=== PATIENT | male | born 1945 | race Two or more races ===

== ENCOUNTER 2017-08-24 10:19 | Day surgery (SDC) | payer MEDICARE ==
[~2017-08-24] VITALS: Ht 165.1 cm; Wt 75.7 kg
[~2017-08-24 10:19] MED LIST: CHOL10002; FLONASE ALLERG9.9 ML NS; LOSA50; LOSA50 PO; Prozac40 MG; Prozac40 MG PO; Simvastatin20 MG; Simvastatin20 MG PO; TRAM50 PO; VITAMIN D32000 UNI1 PO
== END 2017-08-24 13:13 | disposition home or self-care (01) ==
LOC: ORSCSDS 10:19
PROVIDERS: Ophthalmology
PROC: 08RK3JZ Replacement of Left Lens with Synthetic Substitute, Percutaneous Approach (ICD-10-PCS; principal; 2017-08-24 12:00)
DX: H25.12 Age-related nuclear cataract, left eye (principal); G47.33 Obstructive sleep apnea (adult) (pediatric); M32.9 Systemic lupus erythematosus, unspecified; I10 Essential (primary) hypertension; R73.03 Prediabetes; Z79.899 Other long term (current) drug therapy; Z87.891 Personal history of nicotine dependence
CPT/HCPCS: 82947; J2250; J3010; J7040; V2632

== ENCOUNTER 2017-10-05 11:27 | Day surgery (SDC) | payer MEDICARE ==
[~2017-10-05] VITALS: Ht 165.1 cm; Wt 75.2 kg
== END 2017-10-05 13:26 | disposition home or self-care (01) ==
LOC: ORSCSDS 11:27
PROVIDERS: Ophthalmology
PROC: 08RJ3JZ Replacement of Right Lens with Synthetic Substitute, Percutaneous Approach (ICD-10-PCS; principal; 2017-10-05 13:00)
DX: H25.11 Age-related nuclear cataract, right eye (principal); G47.33 Obstructive sleep apnea (adult) (pediatric); I10 Essential (primary) hypertension; R73.03 Prediabetes; M32.9 Systemic lupus erythematosus, unspecified; Z79.899 Other long term (current) drug therapy; Z87.891 Personal history of nicotine dependence
CPT/HCPCS: 82947; J2250; J3010; J7040; V2632

== ENCOUNTER 2019-02-12 07:57 | Day surgery (SDC) | payer MEDICARE ==
[~2019-02-12] VITALS: Ht 165.1 cm; Wt 74.5 kg
[2019-02-12] MEDS ORDERED: CORTISONE60 GM (08:52)
== END 2019-02-12 10:32 | disposition home or self-care (01) ==
LOC: ORSCSDS 07:57
PROVIDERS: Internal Medicine Gastroenterology
PROC: 0DBH8ZX Excision of Cecum, Via Natural or Artificial Opening Endoscopic, Diagnostic (ICD-10-PCS; principal; 2019-02-12 09:30)
PROC: 0DBM8ZX Excision of Descending Colon, Via Natural or Artificial Opening Endoscopic, Diagnostic (ICD-10-PCS; principal; 2019-02-12 09:30)
PROC: 0DBK8ZX Excision of Ascending Colon, Via Natural or Artificial Opening Endoscopic, Diagnostic (ICD-10-PCS; principal; 2019-02-12 09:30)
DX: K92.1 Melena (principal); D12.0 Benign neoplasm of cecum; D12.2 Benign neoplasm of ascending colon; D12.4 Benign neoplasm of descending colon; D12.8 Benign neoplasm of rectum; K57.30 Diverticulosis of large intestine without perforation or abscess without bleeding; K64.8 Other hemorrhoids; I12.9 Hypertensive chronic kidney disease with stage 1 through stage 4 chronic kidney disease, or unspecified chronic kidney disease; N18.4 Chronic kidney disease, stage 4 (severe); G62.9 Polyneuropathy, unspecified; G47.33 Obstructive sleep apnea (adult) (pediatric); Z79.899 Other long term (current) drug therapy
CPT/HCPCS: 88305; J2250; J2704

== ENCOUNTER → 2019-12-16 | Outpatient (CLI) | payer MEDICARE ==
[~2019-12-16] MED LIST changes: +CORTISONE60 GM
== END | disposition home or self-care (01) ==
LOC: LAB SHORT 10:51 → PLD 10:51
DX: L82.0 Inflamed seborrheic keratosis (principal); L81.4 Other melanin hyperpigmentation; L57.8 Other skin changes due to chronic exposure to nonionizing radiation
CPT/HCPCS: 88305

== ENCOUNTER 2020-01-15 22:58 | Emergency (ER) | payer MEDICARE ==
[~2020-01-15] VITALS: Ht 177.8 cm; Wt 77.1 kg
[2020-01-15] MEDS ORDERED: ATORVASTATIN CA80 MG PO (23:30)
== END 2020-01-15 23:57 | disposition home or self-care (01) ==
LOC: ER 22:58
DX: H10.212 Acute toxic conjunctivitis, left eye (principal); T49.0X5A Adverse effect of local antifungal, anti-infective and anti-inflammatory drugs, initial encounter; Z87.891 Personal history of nicotine dependence; Z91.048 Other nonmedicinal substance allergy status; Z79.899 Other long term (current) drug therapy
CPT/HCPCS: 99282

== ENCOUNTER → 2021-01-07 | Outpatient (CLI) | payer MEDICARE ==
[~2021-01-07] MED LIST changes: +ATORVASTATIN CA80 MG PO; +Norco 5-325 Ta1 EACH PO
[2021-01-07 19:30] LABS: BASOPHILS ABSOLUTE AUTO 0.04 K/mm3 (0.00-0.23); BASOPHILS PERCENT AUTO 1 % (0-2); EOSINOPHILS ABSOLUTE AUTO 0.16 K/mm3 (0.00-0.68); EOSINOPHILS PERCENT AUTO 2 % (0-6); Hematocrit 33.2 % (37.0-53.0); Hemoglobin 11.1 g/dL (13.5-17.5); IMMATURE GRAN ABSOLUTE AUTO 0.03 K/mm3 (0.00-0.10); IMMATURE GRAN PERCENT AUTO 0 % (0-1); LYMPHOCYTES ABSOLUTE AUTO 1.55 K/mm3 (0.84-5.20); LYMPHOCYTES PERCENT AUTO 20 % (21-46); MONOCYTES ABSOLUTE AUTO 0.64 K/mm3 (0.16-1.47); MONOCYTES PERCENT AUTO 8 % (4-13); Mean Corpuscular HGB 30.2 pg (26.0-34.0); Mean Corpuscular HGB Conc 33.4 g/dL (31.5-36.5); Mean Corpuscular Volume 90 fL (80-100); Mean Platelet Volume 11.8 fL (9.1-12.4); NEUTROPHILS ABSOLUTE AUTO 5.23 K/mm3 (1.96-9.15); NEUTROPHILS PERCENT AUTO 68 % (41-73); Platelet Count 164 K/mm3 (150-400); RDW Coefficient Variation 13.5 % (11.7-14.2); RDW Standard Deviation 44.4 fL (35.1-46.3); RETICULOCYTE ABSOLUTE 0.0427 M/mm3 (0.0200-0.1100); RETICULOCYTE COUNT PERCENT 1.16 % (0.50-2.50); Red Blood Cell Count 3.68 M/mm3 (4.30-5.90); White Blood Cell Count 7.65 K/mm3 (4.00-11.30)
[2021-01-07 20:26] LABS: Percent Saturation 17.5 % (20.0-50.0)
== END | disposition home or self-care (01) ==
LOC: LAB 18:22 → LAB SHORT 18:22
PROVIDERS: Physician Assistant
DX: D50.8 Other iron deficiency anemias (principal)
CPT/HCPCS: 82728; 83540; 83550; 85025; 85045

== ENCOUNTER 2021-01-21 12:00 | Emergency (ER) | payer MEDICARE ==
[~2021-01-21] VITALS: Ht 165.1 cm; Wt 73.5 kg
[~2021-01-21 12:00] MED LIST changes: -Norco 5-325 Ta1 EACH PO
[2021-01-21] MEDS ORDERED: Norco 5-325 Ta1 EACH PO (13:44)
== END 2021-01-21 13:50 | disposition home or self-care (01) ==
LOC: ER 12:00
DX: S22.31XA Fracture of one rib, right side, initial encounter for closed fracture (principal); Z91.09 Other allergy status, other than to drugs and biological substances; Z79.899 Other long term (current) drug therapy; Z87.891 Personal history of nicotine dependence; W01.10XA Fall on same level from slipping, tripping and stumbling with subsequent striking against unspecified object, initial encounter
CPT/HCPCS: 71101; 99283-25; A9270

== ENCOUNTER → 2021-06-16 | Outpatient (CLI) | payer MEDICARE ==
[~2021-06-16] MED LIST changes: +Norco 5-325 Ta1 EACH PO
[2021-06-16 15:59] LABS: BASOPHILS ABSOLUTE AUTO 0.03 K/mm3 (0.00-0.23); BASOPHILS PERCENT AUTO 1 % (0-2); EOSINOPHILS ABSOLUTE AUTO 0.22 K/mm3 (0.00-0.68); EOSINOPHILS PERCENT AUTO 4 % (0-6); Hematocrit 32.4 % (37.0-53.0); Hemoglobin 10.5 g/dL (13.5-17.5); IMMATURE GRAN ABSOLUTE AUTO 0.02 K/mm3 (0.00-0.10); IMMATURE GRAN PERCENT AUTO 0 % (0-1); LYMPHOCYTES ABSOLUTE AUTO 1.34 K/mm3 (0.84-5.20); LYMPHOCYTES PERCENT AUTO 22 % (21-46); MONOCYTES ABSOLUTE AUTO 0.47 K/mm3 (0.16-1.47); MONOCYTES PERCENT AUTO 8 % (4-13); Mean Corpuscular HGB 30.8 pg (26.0-34.0); Mean Corpuscular HGB Conc 32.4 g/dL (31.5-36.5); Mean Corpuscular Volume 95 fL (80-100); Mean Platelet Volume 11.8 fL (9.1-12.4); NEUTROPHILS ABSOLUTE AUTO 3.89 K/mm3 (1.96-9.15); NEUTROPHILS PERCENT AUTO 65 % (41-73); Platelet Count 141 K/mm3 (150-400); RDW Coefficient Variation 12.8 % (11.7-14.2); Red Blood Cell Count 3.41 M/mm3 (4.30-5.90); White Blood Cell Count 5.97 K/mm3 (4.00-11.30)
== END | disposition home or self-care (01) ==
LOC: LAB SHORT 14:57 → LAB 14:57
PROVIDERS: Physician Assistant
DX: D50.9 Iron deficiency anemia, unspecified (principal)
CPT/HCPCS: 82728; 83540; 83550; 85025

== ENCOUNTER → 2021-11-18 | Outpatient (CLI) | payer MEDICARE ==
[2021-11-18 11:51] LABS: Body Fluid Crystals NEG (NEGATIVE)
[2021-11-18 12:49] LABS: BODY FLUID RBC 0.009 M/mm3 (0-0); RBC Count, Synovial Fluid 9000 /mm3 (0-0); WBC Count, Synovial Fluid 14440 /mm3 (0-180)
[2021-11-18 12:51] LABS: Appearance, Synovial Fluid Cloudy (Clear); Color, Synovial Fluid Yellow (None-P Yel)
[2021-11-18 12:56] LABS: Eos, Synovial Fluid 1 % (0-2); Lymphs, Synovial Fluid 53 % (0-15); Monocytes/Macrophages, Synovia 17 % (0-65); Neutrophils, Synovial Fluid 29 % (0-24)
== END | disposition home or self-care (01) ==
LOC: LAB SHORT 10:20
PROVIDERS: Internal Medicine Rheumatology
DX: M19.90 Unspecified osteoarthritis, unspecified site (principal)
CPT/HCPCS: 89051; 89060

== ENCOUNTER → 2023-03-20 | Outpatient (CLI) | payer MEDICARE | LOC: LAB 17:20 → LAB SHORT 17:20 | DX: M10.9 Gout, unspecified (principal) | CPT/HCPCS: 84550 ==

== ENCOUNTER 2023-08-09 07:49 | Day surgery (SDC) | payer MEDICARE ==
[2023-08-09] VITALS (22 sets, daily range): BP systolic 106–150; BP diastolic 53–98
[~2023-08-09] VITALS: Ht 165.1 cm; Wt 75.5 kg
[~2023-08-09 07:49] MED LIST changes: +ASPI81CH PO; +ATOR80; +ATOR80 PO; +FEBU40TA PO; +LOSA25 PO; +Prednisone10 MG PO; +Vitamin B Comple1 EA PO
--- NOTE | 2023-08-09 08:35 | NUR ---
Ambulatory in Day Surgery Patient confirms NPO status and agrees with scheduled surgery. History, Chart, Medications and Allergies reviewed before start of procedure.Pre-Op teaching done. Pt verbalizes understanding. Patient States Post-Procedure ride home has been arranged.
--- NOTE | 2023-08-09 09:39 | NUR ---
08/09/23 0939 Medina More HISTORY, CHART, MEDICATIONS AND ALLERGIES REVIEWED BEFORE START OF PROCEDURE. PATIENT CONFIRMS NPO STATUS AND AGREES WITH SCHEDULED PROCEDURE. 3-LEAD EKG REVIEWED WITH PHYSICIAN PRIOR TO START OF PROCEDURE. MONITOR INTACT WITH CONTINUOUS PULSE OXIMETRY,CAPNOGRAPHY, 3-LEAD EKG, INTERMITTENT BP. SUPPLEMENTAL O2 TO BE TITRATED THROUGHOUT PROCEDURE TO MAINTAIN O2 SATURATION ABOVE 90%. PATIENT DETERMINED TO BE ASA APPROPRIATE FOR PROPOFOL SEDATION PRIOR TO START OF PROCEDURE BY .
--- NOTE | 2023-08-09 10:28 | NUR ---
1015 REPORT RECEIVED FROM ARIEL SESAY RN. VSS. PT ABLE TO REPOSITION SELF IN BED. PT REQUESTING PO FOOD AND FLUIDS AND TOLERATING THEM WELL. PT DENIES PAIN, NAUSEA, OR OTHER DISCOMFORTS AT THIS TIME.
--- NOTE | 2023-08-09 10:53 | NUR ---
Patient up to Ambulate independently. Gait steady. Discharge instructions reviewed with patient. Patient verbalizes understanding. Copy given to patient to take home. PT HAS NO COMPLAINTS, VSS AND CONSISTENT WITH PT BASELINE. PT VERBALIZES READINESS TO GO HOME. Patient States Post-Procedure ride home has been arranged. Discharged via wheelchair to private car for ride home. PT BELONGINGS RETURNED TO PT.
== END 2023-08-09 10:50 | disposition home or self-care (01) ==
LOC: ORSCMMR 07:49 → ORD 09:00 → ORSCMMR 09:00
PROVIDERS: Internal Medicine Gastroenterology
PROC: 0DB78ZX Excision of Stomach, Pylorus, Via Natural or Artificial Opening Endoscopic, Diagnostic (ICD-10-PCS; principal; 2023-08-09 09:00)
PROC: 0DB48ZX Excision of Esophagogastric Junction, Via Natural or Artificial Opening Endoscopic, Diagnostic (ICD-10-PCS; principal; 2023-08-09 09:00)
PROC: 0DB98ZX Excision of Duodenum, Via Natural or Artificial Opening Endoscopic, Diagnostic (ICD-10-PCS; principal; 2023-08-09 09:00)
PROC: 0DBM8ZX Excision of Descending Colon, Via Natural or Artificial Opening Endoscopic, Diagnostic (ICD-10-PCS; principal; 2023-08-09 09:00)
DX: D46.4 Refractory anemia, unspecified (principal); Z86.010 Personal history of colon polyps; K21.9 Gastro-esophageal reflux disease without esophagitis; K44.9 Diaphragmatic hernia without obstruction or gangrene; K63.5 Polyp of colon; M32.9 Systemic lupus erythematosus, unspecified; G47.33 Obstructive sleep apnea (adult) (pediatric); Z86.73 Personal history of transient ischemic attack (TIA), and cerebral infarction without residual deficits; I10 Essential (primary) hypertension; E78.00 Pure hypercholesterolemia, unspecified; Z79.899 Other long term (current) drug therapy; Z79.82 Long term (current) use of aspirin
CPT/HCPCS: 88305; 88342; A9270; J0461; J2704; J7120

== ENCOUNTER 2025-02-12 10:00 | Emergency (ER) | payer MEDICARE ==
[~2025-02-12] VITALS: Ht 165.1 cm; Wt 70.3 kg
[2025-02-12 10:33] VITALS: BP 152/78
[2025-02-12] MEDS ORDERED: Mobic7.5 MG PO (11:40)
== END 2025-02-12 11:42 | disposition home or self-care (01) ==
LOC: ER 10:00
DX: S61.211A Laceration without foreign body of left index finger without damage to nail, initial encounter (principal); Z87.891 Personal history of nicotine dependence; Z79.82 Long term (current) use of aspirin; Z79.52 Long term (current) use of systemic steroids; Z79.899 Other long term (current) drug therapy; W27.0XXA Contact with workbench tool, initial encounter
CPT/HCPCS: 12001; 73140; 90471; 90702; 90715; 99283-25

== ENCOUNTER 2025-07-07 15:53 | Emergency (ER) | payer MEDICARE ==
[~2025-07-07] VITALS: Ht 165.1 cm; Wt 71.7 kg
[~2025-07-07 15:53] MED LIST changes: +Mobic7.5 MG PO
[2025-07-07 16:26] LABS: BASOPHILS ABSOLUTE AUTO 0.01 K/mm3 (0.00-0.23); BASOPHILS PERCENT AUTO 0 % (0-2); EOSINOPHILS ABSOLUTE AUTO 0.01 K/mm3 (0.00-0.68); EOSINOPHILS PERCENT AUTO 0 % (0-6); Hematocrit 38.6 % (37.0-53.0); Hemoglobin 12.7 g/dL (13.5-17.5); IMMATURE GRAN ABSOLUTE AUTO 0.06 K/mm3 (0.00-0.10); IMMATURE GRAN PERCENT AUTO 1 % (0-1); LYMPHOCYTES ABSOLUTE AUTO 0.93 K/mm3 (0.84-5.20); LYMPHOCYTES PERCENT AUTO 10 % (21-46); MONOCYTES ABSOLUTE AUTO 0.47 K/mm3 (0.16-1.47); MONOCYTES PERCENT AUTO 5 % (4-13); Mean Corpuscular HGB Conc 32.9 g/dL (31.5-36.5); Mean Corpuscular Volume 95 fL (80-100); NEUTROPHILS ABSOLUTE AUTO 7.82 K/mm3 (1.96-9.15); NEUTROPHILS PERCENT AUTO 84 % (41-73); NRBC ABSOLUTE 0.00 K/mm3 (0.00-0.02); NRBC Auto 0.0 /100 WBC (0.0-0.2); Platelet Count 171 K/mm3 (150-400); RDW Coefficient Variation 13.5 % (11.7-14.2); RDW Standard Deviation 47.3 fL (35.1-46.3)
[2025-07-07 16:46] LABS: Alanine Aminotransfer (ALT/SGP 28.0 U/L (12-78); Albumin, Blood 3.6 g/dL (3.4-5.0); Albumin/Globulin Ratio 1.2 (0.8-1.8); Anion Gap 10.0 mmol/L (3-11); Aspartate Aminotrans (AST/SGOT 17.0 U/L (12-37); Bilirubin, Total 0.5 mg/dL (0.1-1.0); Blood Urea Nitrogen 31.0 mg/dL (8-24); CO2, Blood 24.0 mmol/L (21-32); Calcium, Blood 9.7 mg/dL (8.5-10.1); Chloride, Blood 109.0 mmol/L (98-108); Creatinine, Blood 1.51 mg/dL (0.60-1.20); Globulin, Blood 3.1 g/dL (2.2-4.0); Glucose, Blood 134.0 mg/dL (70-99); Potassium, Blood 4.8 mmol/L (3.5-5.5); Sodium, Blood 138.0 mmol/L (136-145); Total Protein, Blood 6.7 g/dL (6.4-8.2)
[2025-07-07] MEDS ORDERED: FARXIGA10 MG PO (18:05)
[2025-07-07] MEDS ORDERED: LOSA50 PO (18:06)
[2025-07-07] MEDS ORDERED: HUMIRA(CF)40 MG/0.4 SQ (18:08)
[2025-07-07] MEDS ORDERED: Hydroxychloroq200 MG PO (18:08)
[2025-07-07] MEDS ORDERED: ROSUVASTATIN CA10 MG PO (18:08)
[2025-07-07 19:39] VITALS: BP 171/85
== END 2025-07-07 19:42 | disposition home or self-care (01) ==
LOC: ER 15:53
PROVIDERS: Student in an Organized Health Care Education/Training Program
DX: R56.9 Unspecified convulsions (principal); Z87.891 Personal history of nicotine dependence; Z79.82 Long term (current) use of aspirin; Z79.51 Long term (current) use of inhaled steroids; Z79.899 Other long term (current) drug therapy
CPT/HCPCS: 70450; 80053; 85025; 93005; 93010; 99284-25